=== PATIENT | female | born 1965 | race Hispanic/Latino ===

== ENCOUNTER 2017-07-21 17:52 | Inpatient (IN) | payer OTHER ==
[~2017-07-21] VITALS: Ht 160 cm; Wt 87.5 kg
[2017-07-21 19:03] LABS: BASOPHILS % 0.3 % (0.0-1.0); EOSINOPHILS # (AUTO) 0.1 (0.0-0.4); HEMATOCRIT 32.7 % (34.2-44.1); LYMPHOCYTES % 34.4 % (18.0-39.1); MEAN CORPUSCULAR HEMOGLOBIN 30.7 pg (28-32); MEAN CORPUSCULAR HGB CONC 33.6 g/dL (31-35); MEAN CORPUSCULAR VOLUME 91.3 fL (81-99); MONOCYTES # (AUTO) 0.5 (0.2-0.8); MONOCYTES % 8.8 % (4.4-11.3); NEUTROPHILS # (AUTO) 3.3 (2.1-6.9); NEUTROPHILS % 55.2 % (38.7-80.0); PLATELET COUNT 152 x10e3/uL (140-360); RED BLOOD COUNT 3.58 x10e6/uL (3.6-5.1); RED CELL DISTRIBUTION WIDTH 13.3 % (11.7-14.4)
[2017-07-21] MEDS ORDERED: METRONIDAZOLE 500MG/NS 100ML 100 ML IV STA (19:17)
[2017-07-21] MEDS ORDERED: SODIUM CHLORIDE 0.9% 1000ML 1,000 ML IV STA ×3 (19:17)
[2017-07-21] MEDS ORDERED: CEFTRIAXONE SOD 1 GM VIAL IV ONE (19:30)
[2017-07-21] MEDS ORDERED: CIPROFLOXACIN 400 MG/D5W 200ML 200 ML IV ONE (19:30)
[2017-07-21 19:31] LABS: ALANINE AMINOTRANSFERASE 34 IU/L (0-55); ALBUMIN 3.7 g/dL (3.5-5.0); ALBUMIN/GLOBULIN RATIO 0.8 (0.8-2.0); ALKALINE PHOSPHATASE 123 IU/L (40-150); ANION GAP 15.9 mmol/L (8-16); BLOOD UREA NITROGEN 10 mg/dL (7-26); BUN/CREATININE RATIO 14 (6-25); CALCIUM 8.6 mg/dL (8.4-10.2); CARBON DIOXIDE 23 mmol/L (22-29); CHLORIDE 102 mmol/L (98-107); CREATININE, SERUM 0.72 mg/dL (0.57-1.11); EST GLOMERULAR FILTRATION RATE > 60 ML/MIN (60-); GLUCOSE 77 mg/dL (74-118); POTASSIUM 3.9 mmol/L (3.5-5.1); SODIUM 137 mmol/L (136-145)
[2017-07-21 19:34] LABS: BILIRUBIN,URINE NEGATIVE (NEGATIVE); CLARITY,URINE CLEAR (CLEAR); COLOR,URINE YELLOW (YELLOW); KETONES,URINE NEGATIVE (NEGATIVE); LEUKOCYTE ESTERASE ,URINE NEGATIVE (NEGATIVE); NITRITE,URINE NEGATIVE (NEGATIVE); PROTEIN,URINE DIPSTICK NEGATIVE (NEGATIVE); URINE UROBILINOGEN 0.2 mg/dL (0.2 - 1)
[2017-07-21 21:23] LABS: INR 0.95; PARTIAL THROMBOPLASTIN TIME 30.5 seconds (23.8-35.5); PROTHROMBIN TIME 13.1 seconds (11.9-14.5)
[2017-07-21] MEDS ORDERED: PIPER-TAZ 3.375 GM/50 ML BAG IV SCH (21:30)
[2017-07-21] MEDS: SODIUM CHLORIDE 0.9% 1000ML 1,000 ML IV SCH (21:42)
[2017-07-21] MEDS: METRONIDAZOLE 500MG/NS 100ML 100 ML IV SCH (22:03)
[2017-07-21] MEDS: PIPER-TAZ 3.375 GM 50 ML IV SCH (22:03)
[2017-07-22] VITALS (7 sets, daily range): BP systolic 89–124; BP diastolic 51–73
[2017-07-22] MEDS: PIPER-TAZ 3.375 GM 50 ML IV SCH ×2 (05:38→09:51)
[2017-07-22] MEDS: METRONIDAZOLE 500MG/NS 100ML 100 ML IV SCH ×4 (05:38→23:09)
[2017-07-22 06:42] LABS: BASOPHILS % 0.5 % (0.0-1.0); EOSINOPHILS # (AUTO) 0.1 (0.0-0.4); EOSINOPHILS % 2.1 % (0.0-6.0); HEMATOCRIT 36.5 % (34.2-44.1); HEMOGLOBIN 12.3 g/dL (12.0-16.0); LYMPHOCYTES # (AUTO) 2.4 (1.0-3.2); LYMPHOCYTES % 41.2 % (18.0-39.1); MEAN CORPUSCULAR HEMOGLOBIN 30.6 pg (28-32); MEAN CORPUSCULAR HGB CONC 33.7 g/dL (31-35); MEAN CORPUSCULAR VOLUME 90.8 fL (81-99); MONOCYTES # (AUTO) 0.7 (0.2-0.8); MONOCYTES % 11.4 % (4.4-11.3); NEUTROPHILS # (AUTO) 2.5 (2.1-6.9); NEUTROPHILS % 44.4 % (38.7-80.0); PLATELET COUNT 305 x10e3/uL (140-360); RED BLOOD COUNT 4.02 x10e6/uL (3.6-5.1); RED CELL DISTRIBUTION WIDTH 13.5 % (11.7-14.4)
[2017-07-22 07:12] LABS: ALANINE AMINOTRANSFERASE 25 IU/L (0-55); ALBUMIN 3.2 g/dL (3.5-5.0); ALBUMIN/GLOBULIN RATIO 0.8 (0.8-2.0); ALKALINE PHOSPHATASE 106 IU/L (40-150); ANION GAP 12.7 mmol/L (8-16); BLOOD UREA NITROGEN 9 mg/dL (7-26); BUN/CREATININE RATIO 13 (6-25); CALCIUM 8.6 mg/dL (8.4-10.2); CARBON DIOXIDE 24 mmol/L (22-29); CHLORIDE 107 mmol/L (98-107); CREATININE, SERUM 0.68 mg/dL (0.57-1.11); EST GLOMERULAR FILTRATION RATE > 60 ML/MIN (60-); GLUCOSE 85 mg/dL (74-118); POTASSIUM 3.7 mmol/L (3.5-5.1); SODIUM 140 mmol/L (136-145)
[2017-07-22] MEDS: SODIUM CHLORIDE 0.9% 1000ML 1,000 ML IV SCH ×3 (13:30→23:09)
[2017-07-22] MEDS ORDERED: LEVOFLOXACIN 750MG/D5W 150ML 150 ML IV SCH (14:00)
[2017-07-22] MEDS ORDERED: MORPHINE SULFATE 4 MG/ML SYR IV PRN (15:45)
[2017-07-22] MEDS ORDERED: ACETAMINOPHEN 325 MG SUPP PR PRN (15:45)
[2017-07-22] MEDS ORDERED: MORPHINE SULFATE 2 MG/ML SYR IV PRN (16:45)
[2017-07-22] MEDS: FAMOTIDINE 20 MG/2 ML VIAL IV SCH (17:59)
[2017-07-22] MEDS: LEVOFLOXACIN 750MG/D5W 150ML 150 ML IV SCH (17:59)
[2017-07-23] VITALS: BP 96/51
[2017-07-23] MEDS ORDERED: ONDANSETRON HCL INJ 2 MG/ML VIAL IV PRN (01:30)
[2017-07-23 04:00] VITALS: BP 94/53
[2017-07-23] MEDS: METRONIDAZOLE 500MG/NS 100ML 100 ML IV SCH ×2 (05:43→15:52)
[2017-07-23] MEDS: SODIUM CHLORIDE 0.9% 1000ML 1,000 ML IV SCH (05:43)
[2017-07-23 07:27] LABS: BASOPHILS % 0.6 % (0.0-1.0); EOSINOPHILS # (AUTO) 0.1 (0.0-0.4); EOSINOPHILS % 2.2 % (0.0-6.0); HEMATOCRIT 35.2 % (34.2-44.1); HEMOGLOBIN 11.8 g/dL (12.0-16.0); LYMPHOCYTES # (AUTO) 2.1 (1.0-3.2); LYMPHOCYTES % 41.6 % (18.0-39.1); MEAN CORPUSCULAR HEMOGLOBIN 30.3 pg (28-32); MEAN CORPUSCULAR HGB CONC 33.5 g/dL (31-35); MEAN CORPUSCULAR VOLUME 90.5 fL (81-99); MONOCYTES # (AUTO) 0.6 (0.2-0.8); MONOCYTES % 11.3 % (4.4-11.3); NEUTROPHILS # (AUTO) 2.2 (2.1-6.9); NEUTROPHILS % 43.7 % (38.7-80.0); PLATELET COUNT 306 x10e3/uL (140-360); RED BLOOD COUNT 3.89 x10e6/uL (3.6-5.1); RED CELL DISTRIBUTION WIDTH 13.3 % (11.7-14.4)
[2017-07-23 08:00] VITALS: BP 96/63
[2017-07-23] MEDS: FAMOTIDINE 20 MG/2 ML VIAL IV SCH (09:43)
[2017-07-23 12:00] VITALS: BP 112/68
[2017-07-23 16:00] VITALS: BP 109/80
[2017-07-23] MEDS: LEVOFLOXACIN 750MG/D5W 150ML 150 ML IV SCH (16:00)
--- NOTE | 2017-07-24 04:48 | Consultation ---
DATE OF CONSULTATION: July 23, 2017 GASTROINTESTINAL CONSULTATION NOTE REASON FOR CONSULTATION: Diverticulitis. HPI: Ms. Huang is a 52-year-old female with a past medical history as listed below who presented to the hospital for evaluation and treatment of abdominal pain symptoms. The patient states that she started to develop abdominal pain approximately 1 week ago. She was initially evaluated in her primary care clinic at which time she was diagnosed with UTI and was given medications. The patient has been tolerating a full diet without difficulty and otherwise is feeling well and has been afebrile in-house. PAST MEDICAL HISTORY: None. PAST SURGICAL HISTORY: . FAMILY HISTORY: Negative for GI malignancies. SOCIAL HISTORY: Negative for alcohol, tobacco or illicit drug use. ALLERGIES: NO KNOWN DRUG ALLERGIES. MEDICATIONS: Per the MAR. REVIEW OF SYSTEMS: A 12-point review of systems was completed with the patient. Of note, the patient has been having low-grade fevers prior to admission to the hospital, none overnight. PHYSICAL EXAMINATION VITAL SIGNS: Temperature 97.2, blood pressure 93/53, pulse rate of 66, and saturating 97% on room air. GENERAL: This is a well-developed, well-nourished female resting comfortably in bed. HEENT: Head normocephalic, atraumatic. Extraocular movements are intact. NECK: Supple. No palpable thyromegaly. CARDIOVASCULAR: Regular rate and rhythm. No murmurs, gallops, or rubs. PMI is nondisplaced. LUNGS: Clear to auscultation with equal chest expansion. ABDOMEN: Soft with tenderness to deep palpation in the left lower quadrant. No rebound, no guarding. EXTREMITIES: Pulses 2+. No clubbing, cyanosis, or edema. NEUROLOGIC: Nonfocal. PSYCHIATRIC: Euthymic. LABS: White blood cell count 4.9, hemoglobin 11.8, hematocrit 35.2, and platelet count 306,000. Sodium 140, potassium 3.7, chloride 107, bicarb 24, BUN of 9, and creatinine of 0.6. Liver enzymes were normal. INR is normal. UA is negative. IMAGING: CT abdomen and pelvis dated July 21, 2017 1. Diverticulitis with an abscess. 2. Dysplastic left femur. ASSESSMENT AND PLAN: This is a 52-year-old female who presented with acute diverticulitis with localized perforation with abscess. 1. Diverticulitis. The patient's diverticulitis caused a contained perforation. At this time, the patient is afebrile and feeling well. I think it is reasonable for her to be discharged home on antibiotics by mouth. The patient will need a followup CAT scan in 2 to 3 weeks and colonoscopy in 4 to 6 weeks. Pending the results of those examinations, the patient may have a need for hemicolectomy. This will be determined after these imaging studies and review of the colon. Discussed this with the patient at length. She seems to understand the need for close followup. 2. Anemia. The patient has a mild anemia. No active signs of gastrointestinal bleeding. I would like to thank Dr. Eli for allowing us to participate in the care of this patient. Job#: [id number] CF
--- NOTE | 2017-07-25 00:15 | Discharge Summary ---
PRIMARY CARE DOCTOR: Dr. Felipe Uribe. FINAL DIAGNOSIS: Acute sigmoid diverticulitis with perforation and abscess. SECONDARY DIAGNOSIS: None. PROCEDURES/STUDIES PERFORMED: Abdominal CT. CONSULTANTS 1. GI, Dr. Templeton covering for Dr. Hatfield. 2. Dr. Rajat Eli, surgery. HISTORY: Per H and P. HOSPITAL COURSE: Patient was admitted. She was started on IV Levaquin and Flagyl. Clinically, she was doing well. No fever, no white count. Initially, she was started on clear liquid diet. She did well. Subsequently, she was given regular diet and she was still doing well. Therefore, patient was cleared for discharge home. Patient will be going home on Cipro and Flagyl for 2 weeks. Patient will follow up with both GI and surgery for colonoscopy and possible elective sigmoidectomy down the line. CONDITION ON DISCHARGE: Stable. DISCHARGE MEDICATIONS: Please see medication reconciliation form. ALIYA AGUILERA M.D. Job#: [id number] CF cc:FELIPE URIBE MD
== END 2017-07-23 18:30 | disposition home or self-care (01) | DRG 392 ==
LOC: ER 17:52 → ERHOLD 23:08 → MED/SURG2 23:11
PROVIDERS: ADMIT Surgery; ATTEND Surgery
DX: K57.20 Diverticulitis of large intestine with perforation and abscess without bleeding (principal); D64.9 Anemia, unspecified; Q74.2 Other congenital malformations of lower limb(s), including pelvic girdle
CPT/HCPCS: 36415; 80053; 81001; 83605; 84702; 85025; 85610; 85730; 87040; 87086; 99284; J2270; J2543; J7030

== ENCOUNTER → 2017-07-21 | Outpatient (CLI) | payer OTHER ==
[~2017-07-21] MED LIST: DIATRIZOATE MEGL/DIATRIZOA SOD 30 ML BTL PO ONE; IOPAMIDOL 370 MG/ML 200 ML INFUS..BTL INJ ONE; SODIUM CHLORIDE 0.9% 50ML 50 ML ONE
--- NOTE | 2017-07-21 18:01 | Diagnostic Imaging Report ---
EXAM: CT Abdomen and Pelvis WITH contrast INDICATION: \S\ABD PAIN; DIVERTICULITIS COMPARISON: None. TECHNIQUE: Abdomen and pelvis were scanned utilizing a multidetector helical scanner from the lung base to the pubic symphysis after administration of IV contrast. Coronal and sagittal reformations were obtained. Routine protocol was performed. Scan was performed when during portal venous phase. IV CONTRAST: 100 mL of Isovue-370 ORAL CONTRAST: Gastroview COMPLICATIONS: None RADIATION DOSE: Total DLP: 586 mGy*cm Estimated effective dose: (DLP x 0.015 x size factor) mSv CTDIvol has been reviewed. It is below the limits set by the Radiation Protocol Committee (RPC). FINDINGS: LINES and TUBES: None. LOWER THORAX: Unremarkable HEPATOBILIARY: No focal hepatic lesions. No biliary ductal dilation. GALLBLADDER: No radio-opaque stones or sludge. No wall thickening. SPLEEN: No splenomegaly. PANCREAS: No focal masses or ductal dilatation. ADRENALS: No adrenal nodules KIDNEYS/URETERS: Kidneys enhance symmetrically. No hydronephrosis. No cystic or solid mass lesions. A couple of right renal subcentimeter hypodensities are too small to characterize. No stones. GI TRACT: Perisigmoid colon inflammation (series 2, image 72), representing diverticulitis. 2.3 x 2.2 cm peripherally enhancing collection abutting the inflamed colon (series 301, image 63), representing an abscess. Appendix is not visualized. PELVIC ORGANS/BLADDER: Unremarkable. LYMPH NODES: No lymphadenopathy. VESSELS: Unremarkable. PERITONEUM / RETROPERITONEUM: No free air or fluid. 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 SOFT TISSUES: Atrophic left thigh/gluteal muscles. IMPRESSION: 1. Findings representing diverticulitis with abscess formation. 2. 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 Findings discussed with Dr. Uribe at 5:45 PM, on 07/21/2017 and patient was sent to the emergency room. Signed by: Dr. Davonte Jean MD on 07/21/2017 5:57 PM
== END ==
LOC: CT 16:10
PROVIDERS: ATTEND Family Medicine
DX: R10.9 Unspecified abdominal pain (principal); K57.92 Diverticulitis of intestine, part unspecified, without perforation or abscess without bleeding
CPT/HCPCS: 74177; Q9967

== ENCOUNTER 2017-08-14 13:55 | Inpatient (IN) | payer OTHER ==
[~2017-08-14] VITALS: Ht 160 cm; Wt 87.5 kg
[2017-08-14 15:32] LABS: BASOPHILS % 0.3 % (0.0-1.0); HEMOGLOBIN 14.3 g/dL (12.0-16.0); LYMPHOCYTES # (AUTO) 1.1 (1.0-3.2); LYMPHOCYTES % 10.1 % (18.0-39.1); MEAN CORPUSCULAR HEMOGLOBIN 30.3 pg (28-32); MEAN CORPUSCULAR HGB CONC 33.3 g/dL (31-35); MEAN CORPUSCULAR VOLUME 91.1 fL (81-99); MONOCYTES # (AUTO) 0.6 (0.2-0.8); MONOCYTES % 5.8 % (4.4-11.3); NEUTROPHILS # (AUTO) 8.9 (2.1-6.9); NEUTROPHILS % 83.4 % (38.7-80.0); PLATELET COUNT 233 x10e3/uL (140-360); RED BLOOD COUNT 4.72 x10e6/uL (3.6-5.1); RED CELL DISTRIBUTION WIDTH 14.7 % (11.7-14.4)
--- NOTE | 2017-08-14 15:42 | Diagnostic Imaging Report ---
PROCEDURE: Frontal and lateral views of the chest. COMPARISON: None. INDICATIONS: DIVERTICULITIS FINDINGS: Lines/tubes: None. Lungs: Limited by body habitus. The lungs are well inflated and clear. There is no evidence of pneumonia or pulmonary edema. Pleura: There is no pleural effusion or pneumothorax. Heart and mediastinum: The heart and the mediastinum are normal. Bones: No acute bony abnormality. IMPRESSION: 1. No acute cardiopulmonary disease. Dictated by: Davonte Jean M.D. on 08/14/2017 at 15:51 Electronically approved by: Davonte Jean M.D. on 08/14/2017 at 15:51
[2017-08-14 15:43] LABS: BILIRUBIN,URINE 1+ (NEGATIVE); KETONES,URINE TRACE (NEGATIVE); LEUKOCYTE ESTERASE ,URINE 2+ (NEGATIVE); NITRITE,URINE NEGATIVE (NEGATIVE); URINE UROBILINOGEN 0.2 mg/dL (0.2 - 1)
[2017-08-14 15:44] LABS: CLARITY,URINE SL CLOUDY (CLEAR); COLOR,URINE YELLOW (YELLOW); PROTEIN,URINE DIPSTICK TRACE (NEGATIVE)
[2017-08-14 15:45] LABS: ALANINE AMINOTRANSFERASE 20 IU/L (0-55); ALBUMIN 3.7 g/dL (3.5-5.0); ALBUMIN/GLOBULIN RATIO 0.8 (0.8-2.0); ALKALINE PHOSPHATASE 75 IU/L (40-150); BLOOD UREA NITROGEN 12 mg/dL (7-26); BUN/CREATININE RATIO 13 (6-25); CALCIUM 9.2 mg/dL (8.4-10.2); CARBON DIOXIDE 25 mmol/L (22-29); CHLORIDE 99 mmol/L (98-107); CREATININE, SERUM 0.92 mg/dL (0.57-1.11); EST GLOMERULAR FILTRATION RATE > 60 ML/MIN (60-); GLUCOSE 90 mg/dL (74-118); SODIUM 133 mmol/L (136-145)
[2017-08-14 15:59] LABS: BACTERIA,URINE FEW /HPF; EPITHELIAL CELLS,URINE MODERATE /LPF; RBC,URINE 0-5 /HPF (0-5); TRANSITIONAL EPI CELLS,URINE FEW
[2017-08-14] MEDS ORDERED: DIATRIZOATE MEGL/DIATRIZOA SOD 30 ML BTL PO ONE (19:23)
[2017-08-14] MEDS ORDERED: ONDANSETRON HCL INJ 2 MG/ML VIAL IV STA (21:55)
[2017-08-14] MEDS ORDERED: ACETAMINOPHEN 325 MG TAB PO ONE (22:00)
[2017-08-14] MEDS ORDERED: SODIUM CHLORIDE 0.9% 50ML 50 ML ONE (22:43)
[2017-08-14] MEDS ORDERED: IOPAMIDOL 370 MG/ML 200 ML INFUS..BTL INJ ONE (22:43)
--- NOTE | 2017-08-14 22:44 | Diagnostic Imaging Report ---
EXAM: CT Abdomen and Pelvis WITH contrast INDICATION: Abdominal pain, history of diverticulitis with abscess COMPARISON: 07/21/2017 TECHNIQUE: Abdomen and pelvis were scanned utilizing a multidetector helical scanner from the lung base to the pubic symphysis after administration of IV contrast. Coronal and sagittal reformations were obtained. Routine protocol was performed. Scan was performed when during portal venous phase. IV CONTRAST: 100 mL of Isovue-370 ORAL CONTRAST: None RADIATION DOSE: Total DLP: 498.77 mGy*cm Estimated effective dose: (DLP x 0.015 x size factor) mSv COMPLICATIONS: None FINDINGS: LINES and TUBES: None. LOWER THORAX: Small sliding hiatal hernia HEPATOBILIARY: No focal hepatic lesions. No biliary ductal dilation. GALLBLADDER: No radio-opaque stones or sludge. No wall thickening. SPLEEN: No splenomegaly. PANCREAS: No focal masses or ductal dilatation. ADRENALS: No adrenal nodules KIDNEYS/URETERS: Kidneys enhance symmetrically. No hydronephrosis. No cystic or solid mass lesions. No stones. GI TRACT: Diffuse circumferential thickening of the colon more significant at the transverse and descending colon , in the setting of recent antibiotic treatment for diverticulitis. Peripherally enhancing fluid collection in the distal sigmoid colon is 1.8 cm in diameter, decreased in size, previously measuring 2.6 cm. Appendix is normal. PELVIC ORGANS/BLADDER: Unremarkable. LYMPH NODES: No lymphadenopathy. VESSELS: Unremarkable. PERITONEUM / RETROPERITONEUM: No free air or fluid. BONES: Unremarkable. SOFT TISSUES: Unremarkable. IMPRESSION: 1. Diffuse circumferential thickening of the colon in the setting of recent antibiotic treatment for diverticulitis is compatible with pseudomembranous colitis. 2. Small fluid collection in the sigmoid colon from prior diverticulitis have decreased in size as described above. The collection now measures 1.8 cm in diameter Signed by: Dr. Lalit Patricio M.D. on 08/14/2017 10:40 PM
[2017-08-14] MEDS ORDERED: METRONIDAZOLE 500MG/NS 100ML 100 ML IV STA (23:16)
[2017-08-14] MEDS ORDERED: VANCOMYCIN 1GM/NS 250 ML 250 ML IV STA (23:16)
[2017-08-14] MEDS ORDERED: ACETAMINOPHEN 325 MG TAB PO PRN (23:45)
[2017-08-14] MEDS ORDERED: ONDANSETRON HCL INJ 2 MG/ML VIAL IV PRN (23:45)
[2017-08-14] MEDS ORDERED: MORPHINE SULFATE 2 MG/ML SYR IV PRN (23:45)
[2017-08-15] MEDS ORDERED: METRONIDAZOLE 500MG/NS 100ML IV SCH
[2017-08-15] MEDS ORDERED: METRONIDAZOLE 500MG/NS 100ML 100 ML IV SCH
[2017-08-15] MEDS: SODIUM CHLORIDE 0.9% 1000ML 1,000 ML IV SCH ×4 (01:48→23:55)
[2017-08-15 06:04] LABS: BASOPHILS % 0.3 % (0.0-1.0); EOSINOPHILS # (AUTO) 0.1 (0.0-0.4); EOSINOPHILS % 0.8 % (0.0-6.0); HEMATOCRIT 41.2 % (34.2-44.1); HEMOGLOBIN 13.9 g/dL (12.0-16.0); LYMPHOCYTES # (AUTO) 1.8 (1.0-3.2); MEAN CORPUSCULAR HEMOGLOBIN 30.8 pg (28-32); MEAN CORPUSCULAR HGB CONC 33.7 g/dL (31-35); MEAN CORPUSCULAR VOLUME 91.2 fL (81-99); MONOCYTES # (AUTO) 0.6 (0.2-0.8); MONOCYTES % 8.2 % (4.4-11.3); NEUTROPHILS # (AUTO) 4.6 (2.1-6.9); NEUTROPHILS % 65.4 % (38.7-80.0); PLATELET COUNT 213 x10e3/uL (140-360); RED BLOOD COUNT 4.52 x10e6/uL (3.6-5.1); RED CELL DISTRIBUTION WIDTH 14.8 % (11.7-14.4)
[2017-08-15 06:54] LABS: ALANINE AMINOTRANSFERASE 22 IU/L (0-55); ALBUMIN 3.3 g/dL (3.5-5.0); ALBUMIN/GLOBULIN RATIO 0.8 (0.8-2.0); ALKALINE PHOSPHATASE 84 IU/L (40-150); ANION GAP 13.4 mmol/L (8-16); BLOOD UREA NITROGEN 13 mg/dL (7-26); BUN/CREATININE RATIO 17 (6-25); CALCIUM 9.1 mg/dL (8.4-10.2); CARBON DIOXIDE 25 mmol/L (22-29); CHLORIDE 103 mmol/L (98-107); CREATININE, SERUM 0.76 mg/dL (0.57-1.11); EST GLOMERULAR FILTRATION RATE > 60 ML/MIN (60-); GLUCOSE 87 mg/dL (74-118); POTASSIUM 3.4 mmol/L (3.5-5.1); SODIUM 138 mmol/L (136-145)
[2017-08-15] MEDS: METRONIDAZOLE 500MG/NS 100ML 100 ML IV SCH ×4 (08:30→23:54)
--- NOTE | 2017-08-15 09:21 | Consultation ---
DATE OF CONSULTATION: August 15, 2017 CHIEF COMPLAINT: Diarrhea and fever. HISTORY OF PRESENT ILLNESS: A very pleasant 52-year-old lady with a history of diverticulitis recently discharged from the hospital on Cipro and Flagyl, comes now with diffuse colitis. Denies any abdominal pain. She had some fever at home. White count is normal. PAST MEDICAL HISTORY: As above. SURGICAL HISTORY: See old records. FAMILY HISTORY: Noncontributory. SOCIAL HISTORY: Lives at home. MEDICATIONS: See list. PHYSICAL EXAMINATION VITALS: Blood pressure 140/80, pulse 82. GENERAL: A well-nourished lady in no distress. HEENT: No pallor. ABDOMEN: Soft and nontender. EXTREMITIES: No edema. ASSESSMENT AND PLAN 1. Fever. 2. Diarrhea. 3. Diffuse colitis, most likely submembranous colitis. Will do stool studies. P.o. vancomycin and add Flagyl. Follow clinically. Advance diet as tolerated. She will need to go home on both p.o. Flagyl and vancomycin as she develops submembranous colitis while on Flagyl p.o. Will follow the patient with you. Will also consult with surgery regarding her medical condition. Job#: [id number] RI cc:FELIPE WHITMORE MD
[2017-08-15] MEDS ORDERED: VANCOMYCIN 1GM/NS 250 ML 250 ML IV SCH (11:00)
[2017-08-15 11:41] LABS: C DIFFICILE TOXIN A&B AMP PROB NEGATIVE (NEGATIVE)
[2017-08-15 11:56] LABS: WBC,FECAL (FECAL LACTOFERRIN) POSITIVE (NEGATIVE)
[2017-08-15] MEDS: VANCOMYCIN 250MG/5ML ORAL SOLN PO SCH ×3 (12:35→23:54)
[2017-08-15 17:00] VITALS: BP 109/67
[2017-08-15 21:39] VITALS: BP_SYST 105; BP_SYST 94; BP_DIAS 66; BP_DIAS 70
[2017-08-16] VITALS (7 sets, daily range): BP systolic 89–110; BP diastolic 62–72
[2017-08-16] MEDS: VANCOMYCIN 250MG/5ML ORAL SOLN PO SCH ×2 (05:51→11:31)
[2017-08-16] MEDS: METRONIDAZOLE 500MG/NS 100ML 100 ML IV SCH ×2 (05:51→11:31)
[2017-08-16] MEDS ORDERED: MORPHINE SULFATE 5 MG/ML VIAL IV PRN (10:45)
[2017-08-16] MEDS: SODIUM CHLORIDE 0.9% 1000ML 1,000 ML IV SCH (11:31)
== END 2017-08-16 15:44 | disposition home or self-care (01) | DRG 392 ==
LOC: ER 13:55 → ERHOLD 08-15 00:51 → MED/SURG3 08-15 16:08
PROVIDERS: ADMIT Surgery; ATTEND Surgery
DX: K52.89 Other specified noninfective gastroenteritis and colitis (principal); T36.8X5A Adverse effect of other systemic antibiotics, initial encounter
CPT/HCPCS: 36415; 71020; 74177; 80053; 81001; 82948; 83605; 83630; 85025; 87040; 87045; 87086; 87493; 96361; 96374; 99284; J2405; J3370; J7030; Q9967

== ENCOUNTER → 2017-12-15 | Day surgery (SDC) | payer OTHER ==
[~2017-12-15] MED LIST changes: -DIATRIZOATE MEGL/DIATRIZOA SOD 30 ML BTL PO ONE; +FENTANYL CITRATE/PF 100MCG/2 ML INJ ONE; -IOPAMIDOL 370 MG/ML 200 ML INFUS..BTL INJ ONE; +METOCLOPRAMIDE HCL 10 MG/2ML VIAL ONE; +MIDAZOLAM HCL 2 MG/2 ML VIAL ONE; +ONDANSETRON HCL 4 MG ORAL DISINTEGRATING TAB ONE; +PROPOFOL IV EMULSION 10 MG/ML 50 ML VIAL ONE; -SODIUM CHLORIDE 0.9% 50ML 50 ML ONE
--- OUTSIDE RECORDS SUMMARY | 2017-12-15 06:19 | XMS REPORT ---
Author [facility] Address Unknown Phone Unavailable Care Team Providers Care [employer] Employment Representative Name Role Phone JOSE L AYERS Unavailable Unavailable FELIPE URIBE Unavailable Unavailable Problems This patient has no known problems. Allergies, Adverse Reactions, Alerts This patient has no known allergies or adverse reactions. Medications This patient has no known medications. Results Test Description Test Time Test Comments Text Results Atomic Results Result Comments CT ABDOMEN/PELVIS W [place] [address] Patient Name: NOLBERTO TORRES MR #: [id number] : 1965 Age/Sex: 52/F Req #: [id number] Adm Physician: Ordered by: DEBORA VALDEZ MD Report #: [id number] Location: ER Room/Bed: ___ Procedure: [id number] CT/CT ABDOMEN/PELVIS W Exam Date: Exam Time: REPORT STATUS: Signed EXAM: CT Abdomen and Pelvis WITH contrast INDICATION: Abdominal pain, history of diverticulitis with abscess COMPARISON: 07/21/2017 TECHNIQUE: Abdomen and pelvis were scanned utilizing a multidetector helical scanner from the lung base to the pubic symphysis after administration of IV contrast. Coronal and sagittal reformations were obtained. Routine protocol was performed. Scan was performed when during portal venous phase. IV CONTRAST: 100 mL of Isovue-370 ORAL CONTRAST: None RADIATION DOSE: Total DLP: 498.77 mGy*cm Estimated effective dose: (DLP x 0.015 x size factor) mSv COMPLICATIONS: None FINDINGS: LINES and TUBES: None. LOWER THORAX: Small sliding hiatal hernia HEPATOBILIARY: No focal hepatic lesions. No biliary ductal dilation. GALLBLADDER: No radio-opaque stones or sludge. No wall thickening. SPLEEN : No splenomegaly. PANCREAS: No focal masses or ductal dilatation. ADRENALS: No adrenal nodules KIDNEYS/URETERS: Kidneys enhance symmetrically. No hydronephrosis. No cystic or solid mass lesions. No stones. GI TRACT: Diffuse circumferential thickening of the colon more significant at the transverse and descending colon , in the setting of recent antibiotic treatment for diverticulitis. Peripherally enhancing fluid collection in the distal sigmoid colon is 1.8 cm in diameter, decreased in size, previously measuring 2.6 cm. Appendix is normal. PELVIC ORGANS/ BLADDER: Unremarkable. LYMPH NODES: No lymphadenopathy. VESSELS: Unremarkable. PERITONEUM / RETROPERITONEUM: No free air or fluid. BONES: Unremarkable. SOFT TISSUES: Unremarkable. IMPRESSION: 1. Diffuse circumferential thickening of the colon in the setting of recent antibiotic treatment for diverticulitis is compatible with pseudomembranous colitis. 2. Small fluid collection in the sigmoid colon from prior diverticulitis have decreased in size as described above. The collection now measures 1.8 cm in diameter Signed by: Dr. Lalit Patricio M.D. on 08/14/2017 10:40 PM Dictated By: LALIT CHAVEZ MD 39 Transcribed By: MORENO on 08/14/172239 COPY TO: DEBORA VALDEZ MD CHEST 2 VIEWS [place] [address] Patient Name: NOLBERTO TORRES MR #: [id number] : 1965 Age/Sex: 52/F Req #: [id number] Adm Physician: Ordered by: JOSE L AYERS MD Report #: [id number] Location: ER Room/Bed: Procedure: [id number] DX/CHEST 2 VIEWS Exam Date: 08/14/17 Exam Time: 1530 REPORT STATUS: Signed PROCEDURE: Frontal and lateral views of the chest. COMPARISON: None. INDICATIONS: DIVERTICULITIS FINDINGS: Lines/tubes: None. Lungs: Limited by body habitus. The lungs are well inflated and clear. There is no evidence of pneumonia or pulmonary edema. Pleura: There is no pleural effusion or pneumothorax. Heart and mediastinum: The heart and the mediastinum are normal. Bones: No acute bony abnormality. IMPRESSION: 1. No acute cardiopulmonary disease. Dictated by: Davonte Lara M.D. on at 15:51 Electronically approved by: Davonte Lara M.D. on 08/14 at 15:51 Dictated By: DAVONTE LARA MD 50 Transcribed By: TRACY on 08/14/17 155 COPY TO: JOSE L AYERS MD CT ABDOMEN/PELVIS [place] [address] Patient Name: NOLBERTO TORRES MR #: [id number] : 1965 Age/Sex: 52/F Req #: [id number] Adm Physician: Ordered by: HAIM ELMORE, FELIPE Hung MD Report #: [id number] Location: CT Room/Bed: ___ Procedure: [id number] CT/CT ABDOMEN/PELVIS W Exam Date: 07/21/17 Exam Time: 1721 REPORT STATUS: Signed EXAM: CT Abdomen and Pelvis WITH contrast INDICATION: COMPARISON: None. TECHNIQUE: Abdomen and pelvis were scanned utilizing a multidetector helical scanner from the lung base to the pubic symphysis after administration of IV contrast. Coronal and sagittal reformations were obtained. Routine protocol was performed. Scan was performed when during portal venous phase. IV CONTRAST: 100 mL of Isovue-370 ORAL CONTRAST: Gastroview COMPLICATIONS: None RADIATION DOSE: Total DLP: 586 mGy*cm Estimated effective dose: (DLP x 0.015 x size factor) mSv CTDIvol has been reviewed. It is below the limits set by the Radiation Protocol Committee (RPC). FINDINGS: LINES and TUBES: None. LOWER THORAX: Unremarkable HEPATOBILIARY: No focal hepatic lesions. No biliary ductal dilation. GALLBLADDER: No radio-opaque stones or sludge. No wall thickening. SPLEEN: No splenomegaly. PANCREAS: No focal masses or ductal dilatation. ADRENALS: No adrenal nodules KIDNEYS/URETERS : Kidneys enhance symmetrically. No hydronephrosis. No cystic or solid mass lesions. A couple of right renal subcentimeter hypodensities are too small to characterize. No stones. GI TRACT: Perisigmoid colon inflammation (series 2 , image 72), representing diverticulitis. 2.3 x 2.2 cm peripherally enhancing collection abutting the inflamed colon (series 301, image 63), representing an abscess. Appendix is not visualized. PELVIC ORGANS/BLADDER: Unremarkable. LYMPH NODES: No lymphadenopathy. VESSELS: Unremarkable. PERITONEUM / RETROPERITONEUM: No free air or fluid. 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 SOFT TISSUES: Atrophic left thigh/gluteal muscles. IMPRESSION: 1. Findings representing diverticulitis with abscess formation. 2. 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 Findings discussed with Dr. Uribe at 5:45 PM, on 07/21/2017 and patient was sent to the emergency room. Signed by: Dr. Davonte Lara MD on 07/21/2017 5:57 PM Dictated By: DAVONTE LARA MD 56 Transcribed By: MORENO on 07/21/171756 COPY TO: FELIPE URIBE
== END | disposition home or self-care (01) ==
LOC: OR 06:16
PROVIDERS: ATTEND Internal Medicine Gastroenterology
DX: Z12.11 Encounter for screening for malignant neoplasm of colon (principal); K62.1 Rectal polyp; K64.8 Other hemorrhoids; K57.30 Diverticulosis of large intestine without perforation or abscess without bleeding; Z01.810 Encounter for preprocedural cardiovascular examination
CPT/HCPCS: 45385; 93005; J2250; J2765; 45378; 45380